=== PATIENT | male | born 1975 | race Caucasian/White ===

== ENCOUNTER 2017-12-02 19:53 | Emergency (ER) | payer OTHER ==
[~2017-12-02] VITALS: Ht 182.9 cm; Wt 95.2 kg
[~2017-12-02 19:53] MED LIST: AMOX500 PO; IBUP400 PO; NAPR500 PO; PENVK250 PO; TRAM50 PO
== END 2017-12-02 22:41 | disposition home or self-care (01) ==
LOC: ER 19:53
DX: S51.812A Laceration without foreign body of left forearm, initial encounter (principal); F32.9 Major depressive disorder, single episode, unspecified; F41.9 Anxiety disorder, unspecified; X78.1XXA Intentional self-harm by knife, initial encounter; F90.9 Attention-deficit hyperactivity disorder, unspecified type
CPT/HCPCS: 12005; 99283